=== PATIENT | male | born 1970 | race Caucasian/White ===

== ENCOUNTER → 2018-09-03 | Outpatient (CLI) | payer BC ==
[~2018-09-03] MED LIST: CYCLOBENZAPRINE5 MG PO; DEXILANT30 MG PO; HYDROCODON-ACE1 EAC9 PO; LEXAPRO10 MG PO; LOSARTAN POTAS100 MG PO; LUNESTA2 MG PO; PRILOSEC OTC20 MG PO
--- NOTE | 2018-09-03 13:29 | Diagnostic Imaging Report ---
Cervical spine, 5 views dated 09/03/2018. History: History of cervical spine surgery and fusion with radicular pain. Discussion: There is normal lordotic curvature of the cervical spine which is visualized on the lateral view from C1 through the top of T1. Status post anterior fusion at C5-C6-C7. There are disc spacers at C5-C6 and C6-C7. Posterior osteophyte complex at C6-C7 causes mild foraminal narrowing. In addition there is mild disc space narrowing with osteophyte formation at C4-C5. No evidence of hardware failure. No evidence of fracture, subluxation or dislocation. The prevertebral soft tissues are within normal limits as well. IMPRESSION: 1. Status post surgical changes as described above. 2. Posterior osteophyte complex at C5-6 C7 causes foraminal narrowing Signed by: Dr. Titi Gonzales DO on 09/03/2018 1:26 PM
== END ==
LOC: RAD 12:24
PROVIDERS: ATTEND Family Medicine
DX: M54.12 Radiculopathy, cervical region (principal); Z98.1 Arthrodesis status
CPT/HCPCS: 72050

== ENCOUNTER → 2018-09-04 | Outpatient (CLI) | payer BC ==
--- NOTE | 2018-09-04 11:57 | Diagnostic Imaging Report ---
MRI SPINE CERVICAL WO HISTORY: Cervical radiculopathy, neck and right shoulder pain COMPARISON: Cervical spine radiographs 09/03/2018, cervical spine MRI 01/10/2014 TECHNIQUE: Sagittal T1, sagittal T2, sagittal inversion recovery, axial T2, axial T2 GRE, and axial T1 weighted MR images of the cervical spine were obtained without intravenous contrast. Motion artifacts obscure some details. DISCUSSION: ACDF changes from C5 to C7 are present. Associated hardware susceptibility artifacts also obscure some details. Alignment: Slight straightening of the cervical lordosis. No scoliosis. Vertebrae: No definite evidence for fractures, infection, or neoplasm. Cervicomedullary junction: No abnormalities. Spinal cord: Normal in signal and morphology from the foramen magnum through T3-T4. Soft tissues: A few mildly prominent bilateral upper jugular chain lymph nodes are partially visualized. There is a small perineural cyst on the right at C7-T1 There is mild disc degeneration above the fusion levels, most prominent at C4-C5. C2-C3: Patent canal and foramina. C3-C4: Mild right and mild to moderate left foraminal stenoses due to uncovertebral and facet arthrosis. No significant canal stenosis. C4-C5: Mild to moderate bilateral foraminal stenoses due to uncovertebral and facet arthrosis. No significant canal stenosis. C5-C6: Fusion level without significant canal or foraminal stenosis. C6-C7: Fusion level without significant canal stenosis. Mild left foraminal stenosis due to uncovertebral and facet arthrosis. No significant right foraminal stenosis. C7-T1: Patent canal and foramina. IMPRESSION: 1. ACDF changes from C5 to C7. 2. Mild disc degeneration above the fusion levels, most prominent at C4-C5. 3. Multilevel degenerative foraminal stenoses - mild to moderate on the left at C3-C4 and bilaterally at C4-C5. 4. No significant canal stenosis. Signed by: Dr. Mychal Rosas M.D. on 09/04/2018 11:53 AM
== END ==
LOC: MRI 09:44
PROVIDERS: ATTEND Family Medicine
DX: M54.12 Radiculopathy, cervical region (principal)
CPT/HCPCS: 72141